=== PATIENT | female | born 1955 | race African-American/Black ===

== ENCOUNTER 2024-11-28 06:24 | Inpatient (IN) | payer MEDICARE, MEDICAID ==
[~2024-11-28] VITALS: Ht 167.6 cm; Wt 80.3 kg
[2024-11-28] VITALS (11 sets, daily range): BP systolic 111–124; BP diastolic 57–70; PULSE 107–116; RESP 18–27; TEMP 36.4736–37.3; O2SAT 93–100
[2024-11-28 07:06] LABS: BG BASE EXCESS 6.2 mmol/L (-2.0-3.0); BG CARBOXYHEMOGLOBIN 0.7 % (0.5-1.5); BG DEOXYHEMOGLOBIN 1.2 % (0.0-5.0); BG HCO3 ACT 32.7 mmol/L (21.0-28.0); BG METHEMOGLOBIN 0.3 % (0.5-1.5); BG OXYGEN SATURATION 98.8 % (94.0-98.0); BG OXYHEMOGLOBIN 97.8 % (94.0-98.0); BG PCO2 56.9 mmHg (32.0-45.0); BG PH 7.377 (7.350-7.450); BG PO2 118.7 mmHg (83.0-108.0); BG SAMPLE SITE RIGHT RADIAL; BG TOTAL HEMOGLOBIN 11.0 g/dL (12.0-16.0); BG VENT MODE ROOM AIR
[2024-11-28] MEDS: ACETAMINOPHEN 1000MG/100ML 100 ML IV ONE (07:11)
[2024-11-28] MEDS: SODIUM CHLORIDE 0.9% 1,000 ML IV ONE (07:11)
[2024-11-28] MEDS: PIPERACILLIN/TAZO 3.375G/50ML 50 ML IV ONE (07:18)
[2024-11-28 07:26] LABS: BASOPHILS % 0.5 % (0.0-2.0); EOSINOPHILS % 4.3 % (0.0-5.0); HEMATOCRIT. 30.6 % (36.0-48.0); HEMOGLOBIN. 9.4 g/dL (12.0-16.0); LYMPHOCYTES % 21.2 % (20.0-50.0); MEAN PLATELET VOLUME 8.0 fl (7.4-10.4); MONOCYTES % 8.3 % (2.0-8.0); NEUTROPHILS % 65.7 % (40.0-76.0); PLATELET 385 x1000/uL (130-400); RED BLOOD CELL COUNT 4.17 mill/uL (4.2-5.4); RED CELL DISTRIBUTION WIDTH 16.2 % (11.6-14.6)
[2024-11-28] MEDS: SODIUM CHLORIDE 0.9% (SEPSIS BOLUS) IV ONE (07:30)
[2024-11-28] MEDS: VANCOMYCIN 1G PREMIX 200 ML IV ONE (08:07)
[2024-11-28 08:15] LABS: CREATININE 0.4 mg/dL (0.6-1.0); UREA NITROGEN BLOOD 15 mg/dL (9-23)
[2024-11-28 08:16] LABS: INR 1.2
[2024-11-28 08:20] LABS: ASPARTATE AMINOTRANSFERASE 22 IU/L (<34)
[2024-11-28 08:21] LABS: BILIRUBIN DIRECT < 0.1 mg/dL (<=3.0); BILIRUBIN TOTAL < 0.2 mg/dL (0.1-1.0); PROTEIN TOTAL 7.1 g/dL (6.0-8.3)
[2024-11-28] MEDS ORDERED: CLONIDINE 0.1MG TABLET GT PRN (09:30)
[2024-11-28] MEDS ORDERED: ACETAMINOPHEN 650MG/20.3ML UDC GT PRN ×2 (09:30)
[2024-11-28] MEDS ORDERED: MAGNESIUM/ALUMINUM HYDROXIDE/SIMETHICONE 30ML UDC GT PRN (09:30)
[2024-11-28] MEDS ORDERED: DOCUSATE SODIUM SUGAR FREE 100MG/10ML UDC GT PRN (09:30)
[2024-11-28] MEDS ORDERED: ONDANSETRON HCL 4MG/2ML INJ IV PRN (09:30)
[2024-11-28 09:35] LABS: CLARITY URINE CLEAR (CLEAR); COLOR URINE YELLOW (YELLOW); GLUCOSE URINE NEGATIVE (NEGATIVE); KETONES URINE NEGATIVE (NEGATIVE); LEUKOCYTE ESTERASE URINE NEGATIVE (NEGATIVE); NITRITE URINE NEGATIVE (NEGATIVE); OCCULT BLOOD URINE TRACE (NEGATIVE); PH URINE 7.0 (4.5-8.0); PROTEIN URINE 1+ (NEGATIVE); SPECIFIC GRAVITY URINE 1.013 (1.005-1.030); UROBILINOGEN URINE 1.0 E.U./dL (0.2-1.0)
[2024-11-28 09:53] LABS: BACTERIA URINE 2+; SQUAMOUS EPITHELIAL CELL URINE 2+ /lpf (RARE/1+); YEAST URINE NONE SEEN
[2024-11-28] MEDS ORDERED: SODIUM CHLORIDE 0.9% 1,000 ML IV SCH (10:30)
[2024-11-28] MEDS: IPRATROPIUM/ALBUTEROL 0.5-3(2.5)MG/3ML NEB HHN SCH (11:14)
[2024-11-28] MEDS: PANTOPRAZOLE SODIUM 40 MG/VIAL IV SCH (11:41)
[2024-11-28] MEDS: FUROSEMIDE 40MG/4ML VIAL IVP NR (11:41)
[2024-11-28] MEDS: ENOXAPARIN 30MG/0.3ML SYR SUBCUT SCH (11:42)
[2024-11-28] MEDS ORDERED: DEXTROSE 50% WATER 50ML SYRINGE IV PRN (12:00)
[2024-11-28] MEDS ORDERED: CEFTRIAXONE 2GM/50ML 50 ML IV SCH (12:00)
[2024-11-28] MEDS: BLOOD SUGAR DIAGNOSTIC STRIP TEST SCH (12:10)
[2024-11-28] MEDS: INSULIN LISPRO 100 UNITS/ML SUBCUT SCH (13:00)
[2024-11-28] MEDS ORDERED: PIPERACILLIN/TAZO 3.375G/50ML 50 ML IV SCH (14:00)
[2024-11-28 14:13] LABS: BG BASE EXCESS 2.6 mmol/L (-2.0-3.0); BG CARBOXYHEMOGLOBIN 1.1 % (0.5-1.5); BG DEOXYHEMOGLOBIN 0.5 % (0.0-5.0); BG FRACTION INSPIRED OXYGEN 40; BG HCO3 ACT 28.8 mmol/L (21.0-28.0); BG METHEMOGLOBIN 0.3 % (0.5-1.5); BG OXYGEN SATURATION 99.5 % (94.0-98.0); BG OXYHEMOGLOBIN 98.1 % (94.0-98.0); BG PCO2 52.5 mmHg (32.0-45.0); BG PH 7.357 (7.350-7.450); BG PO2 161.5 mmHg (83.0-108.0); BG SAMPLE SITE RIGHT RADIAL; BG TOTAL HEMOGLOBIN 10.4 g/dL (12.0-16.0); BG TOTAL RESPIRATORY RATE 24 b/min; BG VENT MODE MASK - BIPAP; BG VENT RATE 22.0 set
[2024-11-28] MEDS ORDERED: DOCU50LI25 MT (15:43)
[2024-11-28] MEDS ORDERED: POLY17PO3 PO (15:43)
[2024-11-28] MEDS ORDERED: CARV25TA47 PO (15:43)
[2024-11-28] MEDS ORDERED: ASCO500C18 PO (15:43)
[2024-11-28] MEDS ORDERED: TOPUD PO (15:43)
[2024-11-28] MEDS ORDERED: ARGI1POW13 PO (15:43)
[2024-11-28] MEDS ORDERED: LATA2.5D14 EACHEYE (15:43)
[2024-11-28] MEDS ORDERED: BISA10SU62 RC (15:43)
[2024-11-28] MEDS ORDERED: MELA3TAB71 PO (15:43)
[2024-11-28] MEDS ORDERED: PRAV10TA35 MT (15:43)
[2024-11-28] MEDS ORDERED: METO-293 PO (15:43)
[2024-11-28] MEDS ORDERED: RIVA20TA MT (15:43)
[2024-11-28] MEDS ORDERED: FURO-152 PO (15:43)
[2024-11-28] MEDS ORDERED: BACL-141 PO (15:43)
[2024-11-28] MEDS ORDERED: MUPI15CR11 TP (15:43)
[2024-11-28] MEDS ORDERED: POTA20LI52 MT (15:43)
[2024-11-28] MEDS ORDERED: FERR220S9 MT (15:43)
[2024-11-28] MEDS ORDERED: CALC667T6 MT (15:43)
[2024-11-28] MEDS ORDERED: GLUC1VIA20 IJ (15:43)
[2024-11-28] MEDS: PIPERACILLIN/TAZO 3.375G/50ML 50 ML IV SCH (16:02)
[2024-11-28] MEDS ORDERED: ATORVASTATIN CALCIUM 20MG TABLET PO SCH (21:00)
[2024-11-28] MEDS: VANCOMYCIN 1.25GM/250ML IV SCH (22:17)
[2024-11-28] MEDS: ATORVASTATIN CALCIUM 20MG TABLET GT SCH (22:20)
[2024-11-29] VITALS (20 sets, daily range): BP systolic 95–112; BP diastolic 51–95; PULSE 96–111; RESP 13–25; TEMP 36.5–37.3; O2SAT 96–100
[2024-11-29 01:41] LABS: TROPONIN I HIGH SENSITIVITY 14 ng/L (3.0-34)
[2024-11-29 06:53] LABS: BASOPHILS % 0.4 % (0.0-2.0); EOSINOPHILS % 0.8 % (0.0-5.0); HEMATOCRIT. 29.3 % (36.0-48.0); HEMOGLOBIN. 8.6 g/dL (12.0-16.0); LYMPHOCYTES % 24.1 % (20.0-50.0); MEAN PLATELET VOLUME 8.4 fl (7.4-10.4); MONOCYTES % 9.8 % (2.0-8.0); NEUTROPHILS % 64.9 % (40.0-76.0); PLATELET 323 x1000/uL (130-400); RED BLOOD CELL COUNT 3.86 mill/uL (4.2-5.4); RED CELL DISTRIBUTION WIDTH 16.6 % (11.6-14.6)
[2024-11-29 06:57] LABS: CREATININE 0.5 mg/dL (0.6-1.0); TRIGLYCERIDE 144 mg/dL (0-150)
[2024-11-29 06:58] LABS: LDL CHOLESTEROL 58 mg/dL (5-100); TROPONIN I HIGH SENSITIVITY 12 ng/L (3.0-34); UREA NITROGEN BLOOD 10 mg/dL (9-23)
[2024-11-29 07:02] LABS: T4 FREE 1.29 ng/dL (0.89-1.76)
[2024-11-29 07:04] LABS: FOLIC ACID (FOLATE) SERUM > 20.00 ng/mL (>5.38); VITAMIN B12 SERUM 1255 pg/mL (211-911)
[2024-11-29 13:00] LABS: BG BASE EXCESS 5.1 mmol/L (-2.0-3.0); BG CARBOXYHEMOGLOBIN 1.1 % (0.5-1.5); BG DEOXYHEMOGLOBIN 0.6 % (0.0-5.0); BG FRACTION INSPIRED OXYGEN 50; BG HCO3 ACT 31.5 mmol/L (21.0-28.0); BG METHEMOGLOBIN 0.0 % (0.5-1.5); BG OXYGEN SATURATION 99.4 % (94.0-98.0); BG OXYHEMOGLOBIN 98.3 % (94.0-98.0); BG PCO2 57.1 mmHg (32.0-45.0); BG PH 7.359 (7.350-7.450); BG PO2 162.7 mmHg (83.0-108.0); BG SAMPLE SITE LEFT BRACHIAL; BG TOTAL HEMOGLOBIN 9.1 g/dL (12.0-16.0); BG TOTAL RESPIRATORY RATE 26 b/min; BG VENT MODE MASK - BIPAP; BG VENT RATE 22.0 set
[2024-11-30] VITALS (15 sets, daily range): BP systolic 94–120; BP diastolic 46–69; PULSE 92–105; RESP 16–25; TEMP 36.3–37.6; O2SAT 96–100
[2024-11-30 06:48] LABS: CREATININE 0.6 mg/dL (0.6-1.0)
[2024-11-30 06:49] LABS: HEMATOCRIT. 27.5 % (36.0-48.0); HEMOGLOBIN. 8.3 g/dL (12.0-16.0); MEAN PLATELET VOLUME 8.3 fl (7.4-10.4); PLATELET 325 x1000/uL (130-400); RED BLOOD CELL COUNT 3.69 mill/uL (4.2-5.4); RED CELL DISTRIBUTION WIDTH 16.2 % (11.6-14.6); UREA NITROGEN BLOOD 9 mg/dL (9-23)
[2024-11-30 10:48] LABS: BG BASE EXCESS 4.6 mmol/L (-2.0-3.0); BG CARBOXYHEMOGLOBIN 1.1 % (0.5-1.5); BG DEOXYHEMOGLOBIN 4.6 % (0.0-5.0); BG FLOW(L/min) 2.00 L/min; BG FRACTION INSPIRED OXYGEN 28; BG HCO3 ACT 30.3 mmol/L (21.0-28.0); BG METHEMOGLOBIN 0.1 % (0.5-1.5); BG OXYGEN SATURATION 95.3 % (94.0-98.0); BG OXYHEMOGLOBIN 94.2 % (94.0-98.0); BG PCO2 52.3 mmHg (32.0-45.0); BG PH 7.381 (7.350-7.450); BG PO2 81.8 mmHg (83.0-108.0); BG SAMPLE SITE RIGHT BRACHIAL; BG TOTAL HEMOGLOBIN 8.2 g/dL (12.0-16.0); BG VENT MODE NASAL CANNULA
[2024-11-30] MEDS: GUAIFENESIN 200MG/10ML SUGAR FREE UDC GT PRN (15:17)
[2024-11-30 17:40] LABS: EOSINOPHILS % MANUAL 2.0 % (0.0-5.0); LYMPHOCYTES % MANUAL 46.0 % (20.0-60.0); MONOCYTES % MANUAL 13.0 % (2.0-8.0); NEUTROPHILS % MANUAL 39.0 % (45.0-75.0); PLATELET ESTIMATE NORMAL
[2024-11-30] MEDS ORDERED: MEROPENEM 1G/100ML 100 ML IV SCH ×2 (22:00→23:59)
[2024-11-30] MEDS: KCL 20MEQ/100ML PREMIX 100 ML IV SCH (22:26)
[2024-12-01] VITALS (14 sets, daily range): BP systolic 98–127; BP diastolic 41–81; PULSE 94–101; RESP 17–26; TEMP 36.3–37.4; O2SAT 96–100
[2024-12-01] MEDS: IPRATROPIUM/ALBUTEROL 0.5-3(2.5)MG/3ML NEB HHN PRN (02:15)
[2024-12-01] MEDS: MEROPENEM 1G/100ML 100 ML IV SCH (05:55)
[2024-12-01 08:20] LABS: CREATININE 0.8 mg/dL (0.6-1.0); UREA NITROGEN BLOOD 11 mg/dL (9-23)
[2024-12-01 08:22] LABS: PHOSPHORUS 1.8 mg/dL (2.5-4.9)
[2024-12-01 08:50] LABS: PLATELET 325 x1000/uL (130-400); RED BLOOD CELL COUNT 3.42 mill/uL (4.2-5.4); RED CELL DISTRIBUTION WIDTH 15.9 % (11.6-14.6)
[2024-12-01] MEDS: GUAIFENESIN 200MG/10ML SUGAR FREE UDC PO SCH (12:58)
[2024-12-01] MEDS: POTASSIUM PHOSPHATE 20 MMOL in DEXT 5% WATER 243.3333 ML IV NR (12:58)
[2024-12-01] MEDS: BUDESONIDE 0.5MG/2ML NEB HHN SCH (21:12)
[2024-12-02] VITALS (10 sets, daily range): BP systolic 98–133; BP diastolic 50–77; PULSE 80–105; RESP 16–29; TEMP 37–37.5; O2SAT 95–100
[2024-12-02] MEDS: GUAIFENESIN 200MG/10ML SUGAR FREE UDC GT SCH (05:33)
[2024-12-02] MEDS: FERROUS SULFATE 325MG TABLET PO SCH (08:29)
[2024-12-02 11:01] LABS: CREATININE 0.7 mg/dL (0.6-1.0)
[2024-12-02 11:02] LABS: UREA NITROGEN BLOOD 8 mg/dL (9-23)
[2024-12-02 11:04] LABS: PHOSPHORUS 2.5 mg/dL (2.5-4.9)
[2024-12-02] MEDS ORDERED: DEXTL GT (12:46)
[2024-12-02] MEDS ORDERED: PULM50 HHN (12:46)
[2024-12-02] MEDS ORDERED: IPRA3AMP9 HHN (12:46)
[2024-12-02] MEDS ORDERED: ERTA1VIA3 IJ (13:59)
[2024-12-02] MEDS ORDERED: MUC20 INH (14:02)
[2024-12-02] MEDS: ACETYLCYSTEINE 200MG/ML 20% VIAL 4ML INH SCH (14:25)
[2024-12-02] MEDS ORDERED: LEVO-65 MT (14:49)
== END 2024-12-02 19:07 | DRG 871 ==
LOC: ER 06:24 → 8WST 08:55 → ENRESERV 09:23 → 8WST 10:21 → 5EST 12:38
PROVIDERS: ADMIT Internal Medicine; ATTEND Internal Medicine
PROC: 5A09357 Assistance with Respiratory Ventilation, Less than 24 Consecutive Hours, Continuous Positive Airway Pressure (ICD-10-PCS; principal; 2024-11-28)
PROC: 5A09357 Assistance with Respiratory Ventilation, Less than 24 Consecutive Hours, Continuous Positive Airway Pressure (ICD-10-PCS; 2024-11-29)
PROC: 5A0935A Assistance with Respiratory Ventilation, Less than 24 Consecutive Hours, High Flow/Velocity Cannula (ICD-10-PCS; 2024-11-29)
DX: A41.59 Other Gram-negative sepsis (principal); G92.8 Other toxic encephalopathy; J69.0 Pneumonitis due to inhalation of food and vomit; J96.02 Acute respiratory failure with hypercapnia; J96.01 Acute respiratory failure with hypoxia; E66.2 Morbid (severe) obesity with alveolar hypoventilation; E87.0 Hyperosmolality and hypernatremia; E87.20 Acidosis, unspecified; I13.0 Hypertensive heart and chronic kidney disease with heart failure and stage 1 through stage 4 chronic kidney disease, or unspecified chronic kidney disease; I69.354 Hemiplegia and hemiparesis following cerebral infarction affecting left non-dominant side; N39.0 Urinary tract infection, site not specified; Z16.12 Extended spectrum beta lactamase (ESBL) resistance; B96.1 Klebsiella pneumoniae [K. pneumoniae] as the cause of diseases classified elsewhere; D50.9 Iron deficiency anemia, unspecified; E11.22 Type 2 diabetes mellitus with diabetic chronic kidney disease; E83.39 Other disorders of phosphorus metabolism; E83.51 Hypocalcemia; E87.6 Hypokalemia; I25.10 Atherosclerotic heart disease of native coronary artery without angina pectoris; I50.9 Heart failure, unspecified; I69.391 Dysphagia following cerebral infarction; K21.9 Gastro-esophageal reflux disease without esophagitis; K59.00 Constipation, unspecified; L89.159 Pressure ulcer of sacral region, unspecified stage; N18.9 Chronic kidney disease, unspecified; Z68.34 Body mass index [BMI] 34.0-34.9, adult; Z74.01 Bed confinement status; Z79.01 Long term (current) use of anticoagulants; Z86.711 Personal history of pulmonary embolism; Z86.718 Personal history of other venous thrombosis and embolism; Z90.710 Acquired absence of both cervix and uterus; Z93.1 Gastrostomy status
CPT/HCPCS: 36415; 36600; 71045; 80048; 80061; 80076; 80202; 81003; 82140; 82375; 82550; 82607; 82728; 82746; 82805; 82962; 83036; 83540; 83550; 83605; 83735; 83880; 84100; 84145; 84439; 84443; 84484; 85025; 85027; 85044; 85379; 87070; 87077; 87186; 93005; 93970; 94070; 94640; 94660; 94664; 97161; 97166; 99291; J0696; J1650; J1815; J1938; J2185; J2470; J2543; J3373; J3480; J3490; J7030; J7060; J7608; J7626; J0131